=== PATIENT | female | born 1950 | race American Indian/Alaskan Native ===

== ENCOUNTER 2019-06-05 10:08 | Outpatient (CLI) | payer MEDICARE ==
--- NOTE | 2019-06-05 14:10 | PET Report ---
PET/CT HISTORY: R59.0 LYMPHADENOPATHY. TECHNIQUE: The patient's fasting blood glucose was 106. The patient weighed 183 lbs. The patient w as injected with 13.1 mCi of FDG in the right antecubital fossa at 1046 hours and imaging was started at 1139 hours. The patient was imaged from the skull base to the thighs. All CT scans at this [facility] are performed using CT dose reduction for ALARA by means of automated exposure control. Images we re reviewed on a workstation. COMPARISON: None available FINDINGS: IMAGED BRAIN: Physiologic FDG uptake. NECK: Physiologic FDG uptake. CHEST WALL: Physiologic FDG uptake. MEDIASTINUM: Physiologic FDG uptake. LUNGS: Physiologic FDG uptake. HEPATOBILIARY: Physiologic FDG uptake. PANCREAS: Physiologic FDG uptake. SPLEEN: Physiologic FDG uptake. KIDNEYS/BLADDER: Physiologic FDG uptake. ADRENAL GLANDS: Physiologic FDG uptake. GI/MESENTERY: Physiologic FDG uptake. PELVIC VISCERA: Physiologic FDG uptake. LYMPH NODES: Multiple mildly enlarged and hypermetabolic lymph nodes are identified. A 1.3 cm right axillary lymph node demonstrates a max SUV of 3.0. No additional suspicious thoracic lymph nodes. The re are 2 or 3 mildly enlarged left periaortic lymph nodes demonstrating Max SUV values up to 13.3. A mildly enlarged aortocaval lymph node demonstrates a max SUV of 7.8. There are several mild to modera tely enlarged lymph nodes within the base of the mesentery surrounded by mild mesenteric stranding. L ymph nodes range from 1 cm to 2.5 cm in greatest dimension with max SUV measuring up to 11.3. There i s also a mildly enlarged and hypermetabolic left inguinal lymph node with max SUV measuring 4.5. OSSEOUS STRUCTURES: Physiologic FDG uptake. ADDITIONAL FINDINGS: None. IMPRESSION: Multiple mildly enlarged and hypermetabolic lymph nodes are identified concerning for lymphoma. Most of the lymph nodes are located at the base of the mesentery in the abdomen as described. There are a few additional hypermetabolic lymph nodes in the retroperitoneum, right axilla and left inguinal reg ion. Please see above. No abnormal PET activity is identified in the visceral organs, lungs or bony structures. Signer Name: Earl Perkins Jr, MD Signed: 06/05/2019 2:06 PM Workstation Name: [id number]
== END 2019-06-05 10:09 | disposition home or self-care (01) ==
LOC: PET 10:08
PROVIDERS: ATTEND Internal Medicine Hematology & Oncology
DX: R59.0 Localized enlarged lymph nodes (principal); C85.98 Non-Hodgkin lymphoma, unspecified, lymph nodes of multiple sites
CPT/HCPCS: 78815; 82962; A9552